=== PATIENT | male | born 1950 | race Caucasian/White ===

== ENCOUNTER → 2025-07-08 08:14 | Outpatient (BNVA) | payer MEDICARE, SELFPAY | PROVIDERS: Visit Provider Podiatrist Foot & Ankle Surgery | DX: S82.64XA Nondisplaced fracture of lateral malleolus of right fibula, initial encounter for closed fracture (principal); W18.39XA Other fall on same level, initial encounter | CPT/HCPCS: 99204 ==

== ENCOUNTER → 2025-07-22 13:07 | Outpatient (BNVA) | payer MEDICARE, SELFPAY | PROVIDERS: Visit Provider Podiatrist Foot & Ankle Surgery | DX: S82.64XA Nondisplaced fracture of lateral malleolus of right fibula, initial encounter for closed fracture (principal); S99.921A Unspecified injury of right foot, initial encounter; X58.XXXA Exposure to other specified factors, initial encounter | CPT/HCPCS: 73610; 99213 ==